=== PATIENT | male | born 1955 | race Caucasian/White ===

== ENCOUNTER → 2018-04-08 | Outpatient (CLI) | payer OTHER ==
--- NOTE | 2018-04-09 07:50 | EKG REPORT ---
SEVERITY:- OTHERWISE NORMAL ECG - SINUS RHYTHM BORDERLINE LEFT AXIS DEVIATION : Confirmed by: Bella Robb MD 09-Apr-2018 07:49:24
== END ==
LOC: OD 12:50
PROVIDERS: ATTEND Orthopaedic Surgery
DX: Z01.810 Encounter for preprocedural cardiovascular examination (principal); Z01.812 Encounter for preprocedural laboratory examination; Z01.89 Encounter for other specified special examinations
CPT/HCPCS: 87070; 93005; 93010

== ENCOUNTER 2019-04-03 07:47 | Day surgery (SDC) | payer OTHER ==
[~2019-04-03 07:47] MED LIST: CEFAZOLIN SODIUM 2 GM in DEXTROSE 5%-WATER 100 ML IV PRN; DEXAMETHASONE SOD PHOSPHATE INJ 4 MG/1 ML VIAL ONE; FENTANYL CITRATE INJ/PF 100 MCG/2 ML AMPUL ONE; MIDAZOLAM 2 MG/2 ML INJ ONE; ONDANSETRON HCL INJ/PF 4 MG/2 ML SDV ONE; PROPOFOL INJ 200 MG/20 ML VIAL IV ONE
[2019-04-03 09:01] LABS: HEMATOCRIT 43.3 % (37.9-51.0); HEMOGLOBIN 14.7 g/dL (13.5-17.0); MEAN CORPUSCULAR HEMOGLOBIN 31.4 pg (27.0-33.4); MEAN CORPUSCULAR VOLUME 92 fl (80-97); PLATELET COUNT 369 10^3/uL (150-450); RED CELL DISTRIBUTION WIDTH 14.4 % (11.5-14.0); WHITE BLOOD COUNT 5.8 10^3/uL (4.0-10.5)
[2019-04-03 09:34] LABS: ANION GAP 11 (5-19); BLOOD UREA NITROGEN 17 mg/dL (7-20); CALCIUM 9.7 mg/dL (8.4-10.2); CARBON DIOXIDE 26 mmol/L (22-30); CHLORIDE 104 mmol/L (98-107); GLUCOSE 99 mg/dL (75-110); POTASSIUM 4.6 mmol/L (3.6-5.0)
--- NOTE | 2019-04-03 09:41 | RADIOLOGY REPORT (SQ) ---
EXAM DESCRIPTION: CHEST SINGLE VIEW COMPLETED DATE/TIME: 04/03/2019 8:36 am REASON FOR STUDY: Pre op COMPARISON: None. EXAM PARAMETERS: NUMBER OF VIEWS: One view. TECHNIQUE: Single frontal radiographic view of the chest acquired. RADIATION DOSE: NA LIMITATIONS: None. FINDINGS: LUNGS AND PLEURA: No opacities, masses or pneumothorax. No pleural effusion. MEDIASTINUM AND HILAR STRUCTURES: No masses. Contour normal. HEART AND VASCULAR STRUCTURES: Heart normal in size. Normal vasculature. BONES: No acute findings. HARDWARE: None in the chest. OTHER: No other significant finding. IMPRESSION: NO ACUTE RADIOGRAPHIC FINDING IN THE CHEST. TECHNICAL DOCUMENTATION: JOB ID: [id number] [employer]- All Rights Reserved Reading location - IP/workstation name: [email or web address]
[2019-04-03] MEDS ORDERED: MEPERIDINE HCL/PF INJ 25 MG/1 ML DISP.SYRIN IV PRN (10:49)
[2019-04-03] MEDS ORDERED: ONDANSETRON HCL INJ/PF 4 MG/2 ML SDV IV PRN (10:49)
[2019-04-03] MEDS ORDERED: MORPHINE SULFATE 10 MG/ML INJ IV PRN (10:49)
[2019-04-03] MEDS ORDERED: FENTANYL CITRATE INJ/PF 100 MCG/2 ML AMPUL IV PRN ×3 (10:49)
[2019-04-03] MEDS ORDERED: DIPHENHYDRAMINE HCL 50 MG/ML VIAL IV PRN (10:49)
[2019-04-03] MEDS ORDERED: PROMETHAZINE HCL INJ 25 MG/1 ML VIAL IV PRN ×2 (10:49)
[2019-04-03] MEDS ORDERED: BUPIVACAINE INJ/PF LIPOSOME/PF 266 MG/20 ML SDV ONE (11:26)
[2019-04-03] MEDS ORDERED: TRANEXAMIC ACID INJ/PF 1,000 MG/10 ML SDV ONE ×2 (11:32→12:33)
--- NOTE | 2019-04-03 11:56 | Discharge Summary ---
Discharge Summary (SDC) - Discharge Final Diagnosis: Left calcaneal fracture Date of Surgery: 04/03/19 Discharge Date: 04/03/19 Condition: Good Treatment or Instructions: Touchdown weightbearing restriction left lower extremity Prescriptions: Oxycodone HCl/Acetaminophen [Percocet 5-325 mg Tablet] 1 tab PO Q6 PRN #40 tab PRN Reason: Referrals: LILIANA YEPEZ PA-C [Primary Care Provider] - Discharge Diet: Regular Respiratory Treatments at Home: Deep Breathing/Coughing Discharge Activity: Balance Activity w/Rest, No tub bath Home Care Assistance: None Needed Report the Following to Your Physician Immediately: Shortness of Breath, Fever over 101 Degrees, Drainage-Foul Smelling
--- NOTE | 2019-04-03 11:59 | Operative Report ---
Operative Report DATE OF SURGERY: 04/03/19 PREOPERATIVE DIAGNOSIS: Left calcaneal fracture OPERATION: Open reduction internal fixation left calcaneal fracture SURGEON: FERN SOTO ANESTHESIA: Spinal ESTIMATED BLOOD LOSS: 150 PROCEDURE: With the patient's in a right lateral decubitus position on the operating table the left lower extremities prepped and draped in a sterile fashion. Limb is el evated for exsanguination tourniquet inflated to 280 torr. A curved incision was made over the plantar surface of the left lateral calcaneus and extending posteriorly and proximally and a curvilinear incision. The entire soft tissue envelope was late raised in 1 layer including the peroneal tendons. 3 pins were then placed into the talus to retain the soft tissue. The underlying calcaneus fracture is identified. A lamina central sterile tech was placed into the posterior facet and there is a longitudinal split in this. The lateral surface of the calcaneus is open and an instrument was placed up in the subchondral region to reduce that longitudinal split in the posterior facet and its pinned in place using 2 pins. A Steinmann pin is now placed percutaneously into the plantar surface the calcaneus and is used to distract the calcaneus and restore Boehler's angle. A [place] titanium medium size lateral calcaneal plate is applied and secured with a combination of locking and nonlocking screws. Plate position and screw position as well as fracture reduction were assessed fluoroscopically and felt to be adequate. The tourniquet was deflated. Considerable bleeding is experienced presumably related to the fractures and emanating from bone., [place] of thrombotic agents is used in an attempt to decrease the amount of bleeding is encountered. Wound is irrigated. It subsequent closure was interrupted Vicryl followed by nylon. A sterile compressive dressing and posterior plaster splint were applied and the patient's return to the PACU in satisfactory condition.
[2019-04-03] MEDS ORDERED: OXYCODONE-ACETAMINOPHEN 5-325 MG TABLET PO PRN (12:21)
[2019-04-03] MEDS ORDERED: TRANEXAMIC ACID INJ/PF 1,000 MG/10 ML SDV IV PRN (12:27)
[2019-04-03] MEDS ORDERED: IBUPROFEN 800 MG in NORMAL SALINE 250 ML IV ONE (13:00)
[2019-04-03] MEDS ORDERED: OXYCODONE-ACETAMINOPHEN 5-325 MG TABLET ONE (13:24)
--- NOTE | 2019-04-03 13:55 | EKG REPORT ---
SEVERITY:- OTHERWISE NORMAL ECG - SINUS RHYTHM LEFT AXIS DEVIATION : Confirmed by: Enrike Soria MD 03-Apr-2019 13:55:08
[2019-04-03] MEDS ORDERED: HYDRALAZINE HCL INJ/PF 20 MG/1 ML SDV ONE (14:35)
[2019-04-03] MEDS ORDERED: HYDRALAZINE HCL INJ/PF 20 MG/1 ML SDV IV PRN (14:38)
--- NOTE | 2019-04-03 14:43 | RADIOLOGY REPORT (SQ) ---
EXAM DESCRIPTION: NO CHG FLUORO; OS CALCIS/HEEL LEFT COMPLETED DATE/TIME: 04/03/2019 12:19 pm REASON FOR STUDY: PLACEMENT OF PLATE ON LEFT HEEL ASST WITH FLUORO IN OR M79.672 PAIN IN LEFT FOOT COMPARISON: None. FLUOROSCOPY TIME: 0.1 minutes 5 Images saved to PACS TECHNIQUE: Intra-operative images acquired during surgical procedure to evaluate progress. NUMBER OF IMAGES: 5 LIMITATIONS: None. FINDINGS: Intraoperative fluoroscopic images obtained to evaluate progress. Please see operative re port for detailed description. IMPRESSION: IMAGE(S) OBTAINED DURING PROCEDURE. COMMENT: Quality ID [id number]: Final reports for procedures using fluoroscopy that document radiation exp osure indices, or exposure time and number of fluorographic images (if radiation exposure indices are not available) Please consult full operative report of the attending physician for description of the procedure. TECHNICAL DOCUMENTATION: JOB ID: [id number] [employer]- All Rights Reserved Reading location - IP/workstation name: [email or web address]
--- NOTE | 2019-04-03 14:43 | RADIOLOGY REPORT (SQ) ---
EXAM DESCRIPTION: NO CHG FLUORO; OS CALCIS/HEEL LEFT COMPLETED DATE/TIME: 04/03/2019 12:19 pm REASON FOR STUDY: PLACEMENT OF PLATE ON LEFT HEEL ASST WITH FLUORO IN OR M79.672 PAIN IN LEFT FOOT COMPARISON: None. FLUOROSCOPY TIME: 0.1 minutes 5 Images saved to PACS TECHNIQUE: Intra-operative images acquired during surgical procedure to evaluate progress. NUMBER OF IMAGES: 5 LIMITATIONS: None. FINDINGS: Intraoperative fluoroscopic images obtained to evaluate progress. Please see operative re port for detailed description. IMPRESSION: IMAGE(S) OBTAINED DURING PROCEDURE. COMMENT: Quality ID 145: Final reports for procedures using fluoroscopy that document radiation exp osure indices, or exposure time and number of fluorographic images (if radiation exposure indices are not available) Please consult full operative report of the attending physician for description of the procedure. TECHNICAL DOCUMENTATION: JOB ID: [id number] [employer]- All Rights Reserved Reading location - IP/workstation name: [email or web address]
[2019-04-03] MEDS ORDERED: HYDRALAZINE HCL INJ/PF 20 MG/1 ML SDV IV ONE (14:45)
[2019-04-03] MEDS ORDERED: SUCCINYLCHOLINE CHLORIDE INJ 200 MG/10 ML VIAL ONE (14:48)
[2019-04-03 15:43] VITALS: BP 139/82
== END 2019-04-03 15:45 | disposition home or self-care (01) ==
LOC: OROUT 07:47
PROVIDERS: ATTEND Orthopaedic Surgery
DX: S92.002A Unspecified fracture of left calcaneus, initial encounter for closed fracture (principal); S82.892A Other fracture of left lower leg, initial encounter for closed fracture; W11.XXXA Fall on and from ladder, initial encounter; M79.672 Pain in left foot
CPT/HCPCS: 28415; 36415; 85027; 80048; 71045; 73650; 93005; 93010; J2250; J0690; J1100; J3010; J0360; J0330; J2405; J7060; J7050; J2704; C9290; J3490; J1741; 01480; C1713; C1781; C9250